=== PATIENT | male | born 1990 | race Caucasian/White ===

== ENCOUNTER 2017-01-28 11:35 | Emergency (ER) | payer SELFPAY ==
[~2017-01-28] VITALS: Ht 195.6 cm; Wt 91.0 kg
[2017-01-28 11:36] VITALS: BP 137/76; PULSE 91; RESP 16; TEMP 98.7; O2SAT 99
--- NOTE | 2017-01-28 13:08 | PD ---
HPI Chief Complaint: Skin Problem Time Seen by Provider: 12:59 Travel History International Travel<30 days: No Contact w/Intl Traveler<30days: No Traveled to known affect area: No History of Present Illness HPI 26-year-old male presents to the emergency room requesting clearance to go to detox. Patient tried to admit himself to detox today but he had an itchy rash to his legs so they told him that he could not come until he gets medication for it. Patient states he has had a rash for about 2 weeks. It is localized to bilateral lower extremities. States it is not currently itchy. He is homeless. FOR[facility]LY [facility], [facility] Social History Tobacco Use: Yes Allergies-Medications (Allergen,Severity, Reaction): Coded Allergies: No Known Allergies (Unverified , 01/28/17) Review of Systems Except as stated in HPI: all other systems reviewed are Neg Physical Exam Narrative GENERAL: Well-nourished, well-developed male in no acute distress. Afebrile. Ambulatory. SKIN: Focused skin assessment warm/dry. There are small, 1-2 mL erythematous, maculopapular lesions in linear distributions in bilateral lower extremities. Mild excoriations. Positive burrowing sign. HEAD: Normocephalic. EYES: No scleral icterus. No injection or drainage. NECK: Supple, trachea midline. No JVD or lymphadenopathy. CARDIOVASCULAR: Regular rate and rhythm without murmurs, gallops, or rubs. RESPIRATORY: Breath sounds equal bilaterally. No accessory muscle use. PSYCHIATRIC: No delusional thought processes. No hallucinations. Data Data Last Documented VS Vital Signs Date Time Temp Pulse Resp B/P (MAP) Pulse Ox O2 Delivery O2 Flow Rate FiO2 01/28/17 11:36 98.7 91 16 137/76 (96) 99 Room Air MDM Medical Decision Making Medical Screen Exam Complete: Yes Emergency Medical Condition: Yes Medical Record Reviewed: Yes Differential Diagnosis Scabies, chiggers, folliculitis Narrative Course 26-year-old male presents to the emergency room requesting skin clearance to return to a detox center. Patient instructed detox from heroin. States when he went today to be cleared, they told him he had a rash and could not come back until he had it evaluated. He has been ongoing for 2 weeks. It is usually itchy but not today. Physical exam is consistent with probable scabies or chiggers. He is homeless. There are multiple burrowing signs to bilateral lower extremities. He has no lesions on the waist, wrists, or in her digital web spaces. Patient will be treated empirically with permethrin. Told to follow up with primary care physician or return for worsening symptoms. He understands and agrees to plan. Diagnosis Primary Impression: possible scabies Referrals: Primary Care Physician Additional Instructions: Apply cream to entire body. Rinse off after 8 hours. Repeat in one week if symptoms persist. Follow-up with a primary care physician. Return to the emergency room for worsening symptoms. Med/Other Pt SpecificInfo: Prescription(s) given Disposition: 01 DISCHARGE HOME Condition: Stable Leilani Sweeney Jan 28, 2017 13:08
[2017-01-28] MEDS ORDERED: PERM5CRE TOPICAL (13:09)
== END 2017-01-28 13:26 | disposition home or self-care (01) ==
LOC: NEPK 11:35
DX: R21 Rash and other nonspecific skin eruption (principal); Z59.0 Homelessness; Z72.0 Tobacco use
CPT/HCPCS: 99283

== ENCOUNTER 2017-01-29 12:03 | Emergency (ER) | payer SELFPAY ==
[~2017-01-29] VITALS: Ht 182.9 cm; Wt 91.0 kg
[~2017-01-29 12:03] MED LIST: PERM5CRE TOPICAL
[2017-01-29 12:05] VITALS: BP 139/81; PULSE 89; RESP 18; TEMP 98.4; O2SAT 97
[2017-01-29 12:53] LABS: AUTOMATED NEUTROPHIL # 5.2 TH/MM3 (1.8-7.7); BASOPHIL # 0.1 TH/MM3 (0-0.2); BASOPHIL % 0.7 % (0.0-2.0); EOSINOPHIL # 0.1 TH/MM3 (0-0.4); EOSINOPHIL % 1.2 % (0.0-4.0); HEMATOCRIT 43.9 % (39.0-51.0); HEMO FLAGS DIFF FINAL; LYMPH % 27.7 % (9.0-44.0); LYMPHOCYTE # 2.2 TH/MM3 (1.0-4.8); MEAN CELL VOLUME 89.1 FL (80.0-100.0); MEAN CORPUSCULAR HEMOGLOBIN 30.1 PG (27.0-34.0); MEAN CORPUSCULAR HGB CONC 33.8 % (32.0-36.0); MONO % 5.7 % (0.0-8.0); NEUT % 64.7 % (16.0-70.0); PLATELET COUNT 222 TH/MM3 (150-450); RED BLOOD COUNT 4.93 MIL/MM3 (4.50-5.90); RED CELL DISTRIBUTION WIDTH 14.3 % (11.6-17.2)
--- NOTE | 2017-01-29 12:54 | PD ---
HPI Chief Complaint: Suicide Ideation/Attempt Time Seen by Provider: 12:14 Travel History International Travel<30 days: No Contact w/Intl Traveler<30days: No Traveled to known affect area: No History of Present Illness HPI 26-year-old male presents to the emergency department for psychiatric evaluation. Patient reports feeling suicidal for the past 2 days. He denies a plan at this time. He states he has attempted suicide in the past by hanging himself. He reports IV heroin use, last use 2 days ago. Patient denies any attempt at this time to hurt himself. He was seen here yesterday for skin rash to bilateral legs. He was discharged with a prescription for permethrin cream for possible scabies. Patient states he did not fill the prescription and due to this, was turned down at [facility]. Patient denies any medical complaints this time. He has no chronic medical problems and takes no prescribed medications. PFSH Past Medical History Medical History: Denies Significant Hx Tetanus Vaccination: Unknown Influenza Vaccination: No Past Surgical History Surgical History: No Previous Surgery Social History Alcohol Use: No Tobacco Use: Yes (1 ppd) Substance Use: No (h/o iv heroin and coccaine clean x 2 days) Allergies-Medications (Allergen,Severity, Reaction): Coded Allergies: No Known Allergies (Unverified , 01/29/17) Reported Meds & Prescriptions Reported Meds & Active Scripts Active Permethrin Topical 5% (Permethrin) 5% Cream 1 Applic TOPICAL ONCE Review of Systems Except as stated in HPI: all other systems reviewed are Neg Physical Exam Narrative GENERAL: Well-nourished, well-developed male patient, afebrile. SKIN: Focused skin assessment warm/dry. Patient has erythematous maculopapular rash to the bilateral lower extremities. No lesions of the arms or rubs. HEAD: Normocephalic. Atraumatic EYES: No scleral icterus. No injection or drainage. NECK: Supple, trachea midline. No JVD or lymphadenopathy. CARDIOVASCULAR: Regular rate and rhythm without murmurs, gallops, or rubs. RESPIRATORY: Breath sounds equal bilaterally. No accessory muscle use. Lungs sounds are clear to auscultation. GASTROINTESTINAL: Abdomen soft, non-tender, nondistended. MUSCULOSKELETAL: No cyanosis, or edema. PSYCHIATRIC: No delusional thought processes. No hallucinations. Data Data Last Documented VS Vital Signs Date Time Temp Pulse Resp B/P (MAP) Pulse Ox O2 Delivery O2 Flow Rate FiO2 01/29/17 12:05 98.4 89 18 139/81 (100) 97 Room Air Orders Orders Complete Blood Count With Diff (01/29/17 12:14) Comprehensive Metabolic Panel (01/29/17 12:14) Psych Screen (01/29/17 12:14) Drug Screen, Random Urine (01/29/17 12:14) Alcohol (Ethanol) (01/29/17 12:14) Salicylates (Aspirin) (01/29/17 12:14) Tylenol (Acetaminophen) (01/29/17 12:14) Labs Laboratory Tests Test 01/29/17 12:35 01/29/17 13:10 White Blood Count 8.0 TH/MM3 Red Blood Count 4.93 MIL/MM3 Hemoglobin 14.8 GM/DL Hematocrit 43.9 % Mean Corpuscular Volume 89.1 FL Mean Corpuscular Hemoglobin 30.1 PG Mean Corpuscular Hemoglobin Concent 33.8 % Red Cell Distribution Width 14.3 % Platelet Count 222 TH/MM3 Mean Platelet Volume 8.0 FL Neutrophils (%) (Auto) 64.7 % Lymphocytes (%) (Auto) 27.7 % Monocytes (%) (Auto) 5.7 % Eosinophils (%) (Auto) 1.2 % Basophils (%) (Auto) 0.7 % Neutrophils # (Auto) 5.2 TH/MM3 Lymphocytes # (Auto) 2.2 TH/MM3 Monocytes # (Auto) 0.5 TH/MM3 Eosinophils # (Auto) 0.1 TH/MM3 Basophils # (Auto) 0.1 TH/MM3 CBC Comment DIFF FINAL Differential Comment Blood Urea Nitrogen 8 MG/DL Creatinine 0.91 MG/DL Random Glucose 140 MG/DL Total Protein 8.0 GM/DL Albumin 4.0 GM/DL Calcium Level 10.0 MG/DL Alkaline Phosphatase 72 U/L Aspartate Amino Transf (AST/SGOT) 26 U/L Alanine Aminotransferase (ALT/SGPT) 51 U/L Total Bilirubin 0.7 MG/DL Sodium Level 141 MEQ/L Potassium Level 3.8 MEQ/L Chloride Level 104 MEQ/L Carbon Dioxide Level 31.8 MEQ/L Anion Gap 5 MEQ/L Estimat Glomerular Filtration Rate 101 ML/MIN Salicylates Level LESS THAN 1.7 MG/DL Acetaminophen Level LESS THAN 2.0 MCG/ML Ethyl Alcohol Level LESS THAN 3 MG/DL Urine Opiates Screen NEG Urine Barbiturates Screen NEG Urine Amphetamines Screen NEG Urine Benzodiazepines Screen NEG Urine Cocaine Screen POS Urine Cannabinoids Screen NEG MDM Medical Decision Making Medical Screen Exam Complete: Yes Emergency Medical Condition: Yes Medical Record Reviewed: Yes Differential Diagnosis Depression versus anxiety versus suicidal ideation versus substance abuse Narrative Course 26-year-old male presents to the emergency department for suicidal ideation. CBC, CMP, alcohol level, urine drug screen, salicylate level, Tylenol level are ordered and pending. CBC is unremarkable. CMP shows hyperglycemia 140, otherwise unremarkable. Alcohol level is less than 3. UDS is positive for cocaine. Salicylate level is less than 1.7. Tylenol level is less than 2.0. Patient is medically cleared for psychiatric screening and disposition. Mental health screening discussed with the patient. Psychiatric screen ordered. Will SCHAFER saw patient and completed psychiatric screen. The patient told her that he is "just homeless". He denies any suicidal or homicidal ideation to her. He apparently was living at [facility] which is a sober house, but was discharged due to positive urine drug screen. He also denied any previous suicidal attempts to her. She recommends patient to be discharged home. I agree patient is malingering. Patient is discharged home. He is to return for any acute, worsening of symptoms, including thoughts of hurting himself. Diagnosis Primary Impression: Substance abuse Referrals: Primary Care Physician [facility] Patient Instructions: Cocaine Abuse (ED), General Instructions Additional Instructions: Follow up at [facility] as needed. Return to the emergency department for any acute, worsening of symptoms. Med/Other Pt SpecificInfo: No Change to Meds Disposition: 01 DISCHARGE HOME Condition: Stable Asha Merchant HANH Jan 29, 2017 12:54
[2017-01-29 13:24] LABS: ANION GAP 5 MEQ/L (5-15)
[2017-01-29 13:33] LABS: ALKALINE PHOSPHATASE 72 U/L (45-117); ALT (GPT) 51 U/L (12-78); AST (GOT) 26 U/L (15-37); BICARBONATE 31.8 MEQ/L (21.0-32.0); BLOOD UREA NITROGEN 8 MG/DL (7-18); CHLORIDE 104 MEQ/L (98-107); GLOMERULAR FILTRATION RATE 101 ML/MIN (>89); POTASSIUM 3.8 MEQ/L (3.5-5.1); SODIUM (NA) 141 MEQ/L (136-145); TOTAL BILIRUBIN ADULT 0.7 MG/DL (0.2-1.0)
[2017-01-29 13:34] LABS: ACETAMINOPHEN LESS THAN 2.0 MCG/ML (10.0-30.0); ALCOHOL LESS THAN 3 MG/DL (0-5)
[2017-01-29 14:48] VITALS: BP 130/80; PULSE 80; RESP 16; O2SAT 97
--- NOTE | 2017-01-29 14:53 | PD ---
History of Present Illness Chief Complaint: Suicide Ideation/Attempt Time Seen by Provider: 14:10 Travel History International Travel<30 Days: No Contact w/Intl Traveler<30days: No Known affected area: No Legal Status Legal Status: Voluntary History of Present Illness: History of Present Illness 26-year-old male with history of substance abuse who presents to the emergency department on a voluntary basis for psychiatric evaluation. Patient reported to ed provider that he has been feeling suicidal for the past 2 days. He did not make any attempts at harming himself and denied having a plan. He reported a previous attempt by hanging. He reports IV heroin use, last use 2 days ago. In reviewing the electronic medical record I see the patient was seen in the emergency department yesterday with complaints of rash to his legs and was discharged with a prescription. Patient states he did not fill the prescription and due to this, was turned down at [facility]. He presented to [facility] seeking detox services. He did not report suicidal ideation at yesterday's visit. Patient has no previous contact with [facility] psychiatry dept. [facility] ttoxicology is positive for cocaine. The patient is seen in main ED. He is asleep and keeps his face under the blankets for most of the visit. He is disheveled. Speech is clear and logical. He is vague in his responses . When asked if he has a plan to harm himself he states " a couple of different things". When asked if he has been treated in the past for a psychiatric illness states " Yes four or five months ago I had a mental breakdown" . He would not elaborate on this despite being asked to describe his symptoms and states " I don't remember". He does not appear to be internally stimulated. When asked what other issues he is experiencing he states " I'm homeless. I was kicked out of [facility] last week. I have to wait until I can go back there". From previous experience, patients who are at [facility], a sober living facility, they are asked to leave if they test positive for drugs. Patient denies any previous suicide attempt to me which is contradictory to information he provided to Ed provider. . PFSH Past Medical History Medical History: Denies Significant Hx Tetanus Vaccination: Unknown Influenza Vaccination: No Past Surgical History Surgical History: No Previous Surgery Psychiatric History Psychiatric History Hx Psychiatric Treatment: Reports he was tretaed at [facility] in the past. Unable to recall hsi symptoms. He staes he was dx as having bipolar disorder. Doesn't remember names of medication. History of Inpatient Treatment: Yes (It is questionable) Guns or firearms in home: No Social History Single male. Originally from [place]. Has a daughter living in [place] as well as his mother. He is unemployed. has been living at a sober living facility. Hx Alcohol Use: No Hx Tobacco Use: Yes (1 ppd) Hx Substance Use: Yes (History of heroin abuse . Had been clean x 1 month prior to relapse. ) Substance Use Type: Heroin, Cocaine Hx of Substance Use Treatment: Yes ([facility] Family Psychiatric History None reported. Allergies-Medications (Allergen,Severity, Reaction): Coded Allergies: No Known Allergies (Unverified , 01/29/17) Reported Meds & Prescriptions Reported Meds & Active Scripts Active Permethrin Topical 5% (Permethrin) 5% Cream 1 Applic TOPICAL ONCE Review of Systems Immunologic/allergic: COMPLAINS OF: Urticaria Mental Status Examination Appearance: Disheveled (dressed in paper scrubs. ) Consciousness: Alert Orientation: x4 Motor Activity: Normal gait Speech: Unremarkable Language: Adequate Fund of Knowledge: Adequate Attention and Concentration: Other (disinterested) Memory: Unremarkable (Not t etsed. Does not appear to be putting effort at answering questions. ) Mood: Other (unforthcoming) Affect: Appropriate Thought Process & Associations: Intact Thought Content: Appropriate Hallucination Type: None Delusion Type: None Suicidal Ideation: No (vague) Suicidal Plan: No (no plan) Suicidal Intention: No Homicidal Ideation: No Homicidal Plan: No Homicidal Intention: No Insight: Poor Judgment: Impulsive MDM Medical Decision Making Medical Record Reviewed: Yes Assessment/Plan 26-year-old male with history of substance abuse who presents to the emergency department on a voluntary basis for psychiatric evaluation. Patient reported to ED provider that he has been feeling suicidal for the past 2 days. He did not make any attempts at harming himself and denied having a plan. He reported a previous attempt by hanging. He reports IV heroin use, last use 2 days ago. The patient had been seen yesterday in ED for treatment of rash on his legs after he was denied admission to [facility] for detox services. They required that he receive treatment for his rash. Although the patient reported today that he had been feeling suicidal for a couple of days he did not report such yesterday. He appears to be malingering for senior care since he was discharged from [facility], a sober living facility. He cannot return there until he can provide a clean urine sample. Furthermore on evaluation today the patient is vague regarding his symptoms and his history. It is determined that he is not an a cute risk to self or others and he does not present any evidence of unstable mental illness. His main issue is substance abuse w recent relapse and homelessness. Psychiatrically for discharge from Ed. Orders Orders Complete Blood Count With Diff (01/29/17 12:14) Comprehensive Metabolic Panel (01/29/17 12:14) Psych Screen (01/29/17 12:14) Drug Screen, Random Urine (01/29/17 12:14) Alcohol (Ethanol) (01/29/17 12:14) Salicylates (Aspirin) (01/29/17 12:14) Tylenol (Acetaminophen) (01/29/17 12:14) Results Vital Signs Date Time Temp Pulse Resp B/P (MAP) Pulse Ox O2 Delivery O2 Flow Rate FiO2 01/29/17 12:05 98.4 89 18 139/81 (100) 97 Room Air Laboratory Tests Test 01/29/17 12:35 01/29/17 13:10 White Blood Count 8.0 Red Blood Count 4.93 Hemoglobin 14.8 Hematocrit 43.9 Mean Corpuscular Volume 89.1 Mean Corpuscular Hemoglobin 30.1 Mean Corpuscular Hemoglobin Concent 33.8 Red Cell Distribution Width 14.3 Platelet Count 222 Mean Platelet Volume 8.0 Neutrophils (%) (Auto) 64.7 Lymphocytes (%) (Auto) 27.7 Monocytes (%) (Auto) 5.7 Eosinophils (%) (Auto) 1.2 Basophils (%) (Auto) 0.7 Neutrophils # (Auto) 5.2 Lymphocytes # (Auto) 2.2 Monocytes # (Auto) 0.5 Eosinophils # (Auto) 0.1 Basophils # (Auto) 0.1 CBC Comment DIFF FINAL Differential Comment Blood Urea Nitrogen 8 Creatinine 0.91 Random Glucose 140 Total Protein 8.0 Albumin 4.0 Calcium Level 10.0 Alkaline Phosphatase 72 Aspartate Amino Transf (AST/SGOT) 26 Alanine Aminotransferase (ALT/SGPT) 51 Total Bilirubin 0.7 Sodium Level 141 Potassium Level 3.8 Chloride Level 104 Carbon Dioxide Level 31.8 Anion Gap 5 Estimat Glomerular Filtration Rate 101 Salicylates Level LESS THAN 1.7 Acetaminophen Level LESS THAN 2.0 Ethyl Alcohol Level LESS THAN 3 Urine Opiates Screen NEG Urine Barbiturates Screen NEG Urine Amphetamines Screen NEG Urine Benzodiazepines Screen NEG Urine Cocaine Screen POS Urine Cannabinoids Screen NEG Diagnosis Primary Impression: Substance abuse Additional Impression: Malingering Ruled Out: Depression Psychiatrically Cleared: Yes Med/ Other Pt Specific Info: No Meds Exist/No RX given Disposition: 01 DISCHARGE HOME Condition: Stable Problem Qualifiers Siria Ramirez Jan 29, 2017 14:53
== END 2017-01-29 15:15 | disposition home or self-care (01) ==
LOC: NEPD 12:03
DX: F19.10 Other psychoactive substance abuse, uncomplicated (principal); R45.851 Suicidal ideations; F17.200 Nicotine dependence, unspecified, uncomplicated; Z59.0 Homelessness; Z76.5 Malingerer [conscious simulation]
CPT/HCPCS: 80053; 80307; 85025; 99284